=== PATIENT | male | born 1990 | race Caucasian/White ===

== ENCOUNTER 2023-08-21 04:35 | Emergency (ER) | payer SELFPAY ==
[~2023-08-21] VITALS: Ht 182.9 cm; Wt 137.0 kg
[2023-08-21 04:40] VITALS: BP_SYST 155; PULSE 60; RESP 19; TEMP 98.8; O2SAT 98
== END 2023-08-21 05:20 | disposition home or self-care (01) ==
LOC: SED 04:35
DX: M54.50 Low back pain, unspecified (principal)
CPT/HCPCS: 99281